=== PATIENT | male | born 1975 | race Caucasian/White ===

== ENCOUNTER 2022-01-17 05:28 | Day surgery (SDC) | payer BC ==
[2022-01-17] MEDS ORDERED: Lactated Ringers 1,000 ML IV SCH (06:30)
[2022-01-17] MEDS ORDERED: DIPRIVAN 200 MG/20 ML IV ONE (07:25)
[2022-01-17] MEDS ORDERED: Xylocaine-Mpf 2% 5 Ml Vial ONE (07:25)
[2022-01-17 08:01] VITALS: PULSE 59
[2022-01-17 08:07] VITALS: BP 146/83; O2SAT 99
--- NOTE | 2022-01-17 10:52 | OP ---
SURGERY DATE/TIME: 01/17/2022 0727 PREOPERATIVE DIAGNOSIS: Gastroesophageal reflux disease. POSTOPERATIVE DIAGNOSIS: Mild gastritis. PROCEDURE: Esophagogastroduodenoscopy with cold forceps biopsy. SURGEON: Dr. Munguia. ANESTHESIA: Medications were given by the anesthesia department. BRIEF HISTORY: The patient is a 46-year-old white male patient reports he had problems with reflux and epigastric pain for years. He currently takes Mylanta and omeprazole 40 mg a day. He said it improved it somewhat but he continues to have to take the Maalox. The patient is felt the need to have endoscopic evaluation. He was appraised of the risks of the procedure including the risk of perforation, phlebitis, untoward reaction to medication, bleeding and missed lesions. The patient verbalized his understanding and desired to have the procedure performed. DESCRIPTION OF PROCEDURE: The patient was given the medications by the anesthesia department. He had continuous pulse oximetry, ECG monitoring, intermittent blood pressure monitoring during the examination. He was placed in the left lateral decubitus position. A bite block was placed. The flexible Olympus gastroscope was used to intubate the oropharynx. A view of the larynx was obtained and was normal. The scope was easily introduced in the esophagus which was normal throughout its length. The stomach was entered where normal gastric rugal folds were seen and these distended nicely with insufflation of air. The scope was passed along the greater curvature of the stomach to the antrum. The pylorus was encountered and intubated. The duodenum inspected and found to be normal. The scope is withdrawn towards the stomach again. A retroflex view was obtained of the lesser curvature, fundus and cardia regions of the stomach and these were essentially normal. The scope was then redirected towards the gastric antrum and biopsies were obtained to rule out the presence of Helicobacter pylori-type organisms. The scope was then removed from the patient who tolerated the procedure well and was sent back to outpatient recovery in good condition.
== END 2022-01-17 08:13 | disposition home or self-care (01) ==
LOC: SDC 05:28
PROVIDERS: ATTEND Family Medicine
DX: K29.70 Gastritis, unspecified, without bleeding (principal); K21.9 Gastro-esophageal reflux disease without esophagitis
CPT/HCPCS: J2704

== ENCOUNTER 2022-07-19 20:52 | Emergency (ER) | payer BC ==
--- NOTE | 2022-07-19 21:20 | ERPHSYRPT ---
- History of Present Illness Source: patient Exam Limitations: no limitations Patient Subjective Stated Complaint: pt states "I stepped off the curb wrong and twisted my ankle." Triage Nursing Assessment: Pt presents to ED in wheelchair, pt alert and oriented x3, pt c/o L ankle pain after stepping off the curb wrong, L ankle noticably swollen, no bruising noted at this time, pt was recently put on xarelto for a blood clot in left leg that he has been taking for a couple weeks Physician History: 47 yo wm w L ankle pain after rolling it stepping off a curb in [place]. pain is mild, but worse w weight bearing. He denies other/previous injuries at this time. Method of Injury: twisted Occurred: just prior to arrival Quality: constant Severity of Pain-Max: moderate Severity of Pain-Current: mild Lower Extremities Pain: ankle: right Modifying Factors: Improves With: movement Associated Symptoms: unable to bear weight Allergies/Adverse Reactions: watermelon Allergy (Verified 07/19/22 21:03) Home Medications: Cetirizine HCl [All Day Allergy Relief] 10 mg PO DAILY 01/16/22 [History] Famciclovir 1 tab PO DAILY 01/16/22 [History] Finasteride 1 tab PO DAILY 01/16/22 [History] Furosemide 40 mg [Lasix 40 MG] 1 tab PO DAILY 01/16/22 [History] OXcarbazepine [Oxcarbazepine] 1 tab PO TID 01/16/22 [History] Omeprazole 1 cap PO DAILY 01/16/22 [History] Valacyclovir HCl [Valacyclovir] 1 tab PO TID 01/16/22 [History] Hx Tetanus, Diphtheria Vaccination/Date Given: No Hx Influenza Vaccination/Date Given: No Hx Pneumococcal Vaccination/Date Given: No Immunizations Up to Date: Yes Travel Risk - International Travel Have you traveled outside of the country in past 3 weeks: No - Coronavirus Screening Are you exhibiting any of the following symptoms?: No Close contact with a COVID-19 positive Pt in past 14-21 Days: No - Vaccine Status Have you recieved a Covid-19 vaccination: Yes Senior [employer]: [employer] - Vaccination Dates Date of 2cond Vaccination (if applicable): 2020 - Review of Systems Constitutional: No Symptoms Eyes: No Symptoms Ears, Nose, & Throat: No Symptoms Respiratory: No Symptoms Cardiac: No Symptoms Abdominal/Gastrointestinal: No Symptoms Genitourinary Symptoms: No Symptoms Skin: No Symptoms Neurological: No Symptoms Psychological: No Symptoms Endocrine: No Symptoms Hematologic/Lymphatic: No Symptoms Immunological/Allergic: No Symptoms - Past Medical History Pertinent Past Medical History: Yes Neurological History: No Pertinent History ENT History: No Pertinent History Cardiac History: No Pertinent History Respiratory History: No Pertinent History Endocrine Medical History: No Pertinent History Musculoskeletal History: Other GI Medical History: GERD History: No Pertinent History Psycho-Social History: No Pertinent History Male Reproductive Disorders: No Pertinent History Other Medical History: neuropathy in both legs - Past Surgical History Past Surgical History: Yes Neuro Surgical History: No Pertinent History Cardiac: No Pertinent History Respiratory: No Pertinent History Gastrointestinal: No Pertinent History Genitourinary: No Pertinent History Musculoskeletal: Orthopedic Surgery Male Surgical History: No Pertinent History Other Surgical History: right hand surgery. - Social History Smoking Status: Never smoker Exposure to second hand smoke: No Drug Use: none Patient Lives Alone: No - Nursing Vital Signs Nursing Vital Signs: Initial Vital Signs Temperature 98.6 F 07/19/22 21:04 Pulse Rate 92 H 07/19/22 21:04 Respiratory Rate 18 07/19/22 21:04 Blood Pressure 126/79 07/19/22 21:04 O2 Sat by Pulse Oximetry 98 07/19/22 21:04 Pain Scale Pain Intensity 8 WNL - Physical Exam General Appearance: no apparent distress Eyes, Ears, Nose, Throat Exam: normal ENT inspection, TMs normal, pharynx normal, moist mucous membranes Neck Exam: normal inspection, non-tender, supple, full range of motion, other (C-spine NTTP), No Brudzinski, No Kernig's, No meningismus Cardiovascular/Respiratory Exam: chest non-tender, normal breath sounds, regular rate/rhythm, heart sounds normal, no respiratory distress Gastrointestinal/Abdominal Exam: non-tender, soft Back Exam: normal inspection, No vertebral tenderness Hips Exam: bilateral: non-tender, normal inspection, normal range of motion, no evidence of injury Legs Exam: bilateral leg: non-tender, normal inspection, normal range of motion, no evidence of injury Knees Exam: bilateral knee: non-tender, normal inspection, normal range of motion, no evidence of injury Ankle Exam: left ankle: swelling (Marked edema surrounding medial-lateral malleolus/Mild TTP medially and laterally/Good pedal pulse, distal sensation, and capillary return) Foot Exam: bilateral foot: non-tender, normal inspection, normal range of motion, no evidence of injury DTR - Lower Extremities Exam: knee (R): 2+, knee (L): 2+ Neuro/Tendon Exam: normal sensation, normal motor functions, normal tendon functions, responds to pain, no evidence tendon injury, No motor deficit, No sensory deficit Mental Status Exam: alert, oriented x 3, cooperative Skin Exam: normal color, warm, dry, No rash SpO2 Interpretation: normal SpO2: 98 O2 Delivery: Room Air - Course Nursing assessment & vital signs reviewed: Yes - Radiology Exams Ankle X-ray Interpretation: Discussed w/ radiologist (Avulsion fx lateral talus) Ordered Tests: Active Orders 24 hr Category Date Time Status Crutches STAT Care 07/19/22 22:13 Ordered Splint STAT Care 07/19/22 22:12 Ordered ANKLE (3 VIEWS) Stat Exams 07/19/22 21:23 Taken Medication Summary Discontinued Medications Generic Name Dose Route Start Last Admin Trade Name Kurtq PRN Reason Stop Dose Admin Ketorolac Tromethamine 30 mg 07/19/22 21:21 07/19/22 21:23 Ketorolac Tromethamine 30 Mg/Ml Inj IM 07/19/22 21:22 30 mg STAT ONE Administration Ketorolac Tromethamine Confirm 07/19/22 21:22 Ketorolac Tromethamine 30 Mg/Ml Inj Administered 07/19/22 21:23 Dose 30 mg .ROUTE .STK-MED ONE Ketorolac Tromethamine 30 mg 07/19/22 22:12 Ketorolac Tromethamine 30 Mg/Ml Inj IM 07/19/22 22:13 STAT ONE - Progress Progress: improved Progress Note: 07/19/22 22:15 30mg IM Toradol Walking Boot LLE per nursing/NVI Crutches per nursing Counseled pt/family regarding: diagnosis, need for follow-up, rad results - Departure Departure Disposition: Home Clinical Impression: Fracture, talus closed Condition: Stable Critical Care Time: No Referrals: LESLIE ALY [Primary Care Provider] - Follow up/PCP as directed ORTHO - FATMATA FOUNTAIN NP [NON-STAFF PHY W/O PRIVILEGES] - Follow up/PCP as directed Instructions: Ankle Fracture (DC) Additional Instructions: Ice for 12-24 hours No weight bearing/Use crutches Follow up in Ortho clinic M-Fr 8-10 Pain meds as needed Prescriptions: Hydrocodone/Acetaminophen [Hydrocodone-Acetamin 5-325 mg] 1 tab PO Q4HPRN PRN #6 tablet MDD 6 PRN Reason: Pain
[2022-07-19] MEDS ORDERED: TORAdol 30 mg Injection ONE ×2 (21:22→22:26)
[2022-07-19] MEDS: TORAdol 30 mg Injection IM ONE ×2 (21:23→22:28)
[2022-07-19] MEDS ORDERED: NORCO 5/325 MG ONE (22:27)
[2022-07-19] MEDS: NORCO 5/325 MG PO ONE (22:28)
[2022-07-19 22:42] VITALS: BP 132/78; PULSE 78; O2SAT 99
--- NOTE | 2022-07-20 08:52 | XRAY ---
Indication: Pain following inversion injury. Comparison: None 3 view left ankle demonstrates displaced cortical fracture lateral margin talus with anterior lateral soft tissue swelling. No other bony, articular, or soft tissue abnormalities.
== END 2022-07-19 22:42 | disposition home or self-care (01) ==
LOC: ED 20:52
DX: S92.102A Unspecified fracture of left talus, initial encounter for closed fracture (principal); M25.472 Effusion, left ankle; X50.1XXA Overexertion from prolonged static or awkward postures, initial encounter; Z79.01 Long term (current) use of anticoagulants; Z79.899 Other long term (current) drug therapy
CPT/HCPCS: 73610; 96372; 99283; J1885; L4386; A9270-GY

== ENCOUNTER 2024-09-08 12:39 | Emergency (ER) | payer BC ==
[2024-09-08 13:01] VITALS: TEMP 98
--- NOTE | 2024-09-08 13:28 | ERPHSYRPT ---
- History of Present Illness Time Seen by Provider: 09/08/24 12:47 Source: patient Exam Limitations: no limitations Patient Subjective Stated Complaint: C/O abdominal pain with N/V that started at 2am today. Triage Nursing Assessment: Patient ambulated back to ER without difficulties. He is alert and oriented. Patient gaurding/holding right side of abdomen upon arrival. No SOB. SKin tone normal. LY WNL. Physician History: Pt is a 49 y/o male presenting with right-upper abd. pain since 2 am this morning. Pt endorses sudden onset of 10/10 dull pain that was worse while laying on his right side. He describe having multiple episodes of vomiting without blood and has been unable to eat anything since last night and also has difficulty keeping fluids down. He descrbies never having experienced such a pain before and is not similar to the usual heartburn he has had. He has not taken any medications for the pain as he can't keep anything down and claims to not use painkillers such as ibuprofen normally. He does feel feverish feverish but has not had his temparture taken at home. He notes no previous surgeries on his abdomen. He describe that his stool was also abnormally soft and light green this morning but no blood. Allergies/Adverse Reactions: watermelon Allergy (Verified 09/08/24 12:52) Home Medications: Famciclovir 1 tab PO DAILY 01/16/22 [History] Finasteride 1 tab PO DAILY 01/16/22 [History] Gabapentin [Neurontin ] 300 mg PO DAILY 09/08/24 [History] PANTOPRAZOLE 40 mg Tablet [Protonix 40MG Tablet] 40 mg PO DAILY 09/08/24 [History] Hx Tetanus, Diphtheria Vaccination/Date Given: Yes Hx Influenza Vaccination/Date Given: No Hx Pneumococcal Vaccination/Date Given: No Immunizations Up to Date: Yes Travel Risk - International Travel Have you traveled outside of the country in past 3 weeks: No - Emerging Infectious Disease Are you exhibiting symptoms associated with any current EIDs: Yes Symptoms: Abdominal Pain, Vomitting - Past Medical History Pertinent Past Medical History: Yes Neurological History: No Pertinent History ENT History: No Pertinent History Cardiac History: Deep Vein Thrombosis Respiratory History: No Pertinent History Endocrine Medical History: No Pertinent History Musculoskeletal History: Other GI Medical History: GERD History: No Pertinent History Psycho-Social History: No Pertinent History Male Reproductive Disorders: No Pertinent History Other Medical History: neuropathy in both legs - Past Surgical History Past Surgical History: Yes Neuro Surgical History: No Pertinent History Cardiac: No Pertinent History Respiratory: No Pertinent History Gastrointestinal: No Pertinent History Genitourinary: No Pertinent History Musculoskeletal: Orthopedic Surgery Male Surgical History: No Pertinent History Other Surgical History: right hand surgery. - Social History Smoking Status: Never smoker Exposure to second hand smoke: No Drug Use: none Patient Lives Alone: No - Social Determinants of Health Will the patient participate in the screening: Declined to provide - Nursing Vital Signs Nursing Vital Signs: Initial Vital Signs Pulse Rate 77 09/08/24 12:50 Respiratory Rate 15 09/08/24 12:50 Blood Pressure 127/86 09/08/24 12:50 O2 Sat by Pulse Oximetry 98 09/08/24 12:50 Pain Scale Pain Intensity 4 - Physical Exam SpO2 Interpretation: normal SpO2: 98 Comments: 09/08/24 14:01 Review of Systems Constitutional: Negative for fever. HENT: Negative for congestion. Respiratory: Negative for shortness of breath. Cardiovascular: Negative for chest pain. Gastrointestinal: Abdominal pain Genitourinary: Negative for dysuria. Musculoskeletal: Negative for back pain. Skin: Negative for rash. Neurological: Negative for headaches. Psychiatric/Behavioral: Negative for behavioral problems. All other systems reviewed and are negative. Physical Exam Vitals signs and nursing note reviewed. Constitutional: Appearance: Patient is well-developed. HENT: Head: Normocephalic and atraumatic. Eyes: Conjunctiva/sclera: Conjunctivae normal. Neck: Musculoskeletal: Normal range of motion. Trachea: No tracheal deviation. Cardiovascular: Rate and Rhythm: Normal rate. Pulmonary: Effort: Pulmonary effort is normal. No respiratory distress. Abdominal: Palpations: Abdomen is soft. Right upper quadrant tenderness. No rebound or guarding. Nonacute abdomen Musculoskeletal: General: No deformity. Skin: General: Skin is warm and dry. Neurological/ Psychiatric: Mental Status: Mental status, behavior, interaction with environment is appropriate for patient's age and condition - Course Nursing assessment & vital signs reviewed: Yes EKG Interpreted by Me: Sinus Rhythm Ordered Tests: Active Orders 24 hr Category Date Time Status EKG-ER Only STAT Care 09/08/24 13:16 Active IV Insertion STAT Care 09/08/24 13:16 Active ABDOMEN AND PELVIS W CONTRAST [CT] Stat Exams 09/08/24 13:16 Completed CBC W DIFF Stat Lab 09/08/24 13:45 Completed CMP Stat Lab 09/08/24 13:45 Completed LIPASE Stat Lab 09/08/24 13:45 Completed UA W/RFX UR CULTURE Stat Lab 09/08/24 13:16 Ordered Medication Summary Discontinued Medications Generic Name Dose Route Start Last Admin Trade Name Murali PRN Reason Stop Dose Admin Sodium Chloride 1,000 mls @ 999 mls/hr 09/08/24 13:16 09/08/24 14:45 Sodium Chloride 0.9% 1000 Ml IV 09/08/24 14:16 Infused .Q1H1M STA Infusion Sodium Chloride Confirm 09/08/24 13:37 Sodium Chloride 0.9% 1000 Ml Administered 09/08/24 13:38 Dose 1,000 mls @ ud .ROUTE .STK-MED ONE Ketorolac Tromethamine 30 mg 09/08/24 13:16 09/08/24 13:44 Ketorolac Tromethamine 30 Mg/Ml Inj IV 09/08/24 13:17 30 mg STAT ONE Administration Ketorolac Tromethamine Confirm 09/08/24 13:37 Ketorolac Tromethamine 30 Mg/Ml Inj Administered 09/08/24 13:38 Dose 30 mg .ROUTE .STK-MED ONE Morphine Sulfate 2 mg 09/08/24 13:16 09/08/24 13:45 Morphine Sulfate 2 Mg/Ml Inj IV 09/08/24 13:17 2 mg STAT ONE Administration Morphine Sulfate Confirm 09/08/24 13:37 Morphine Sulfate 2 Mg/Ml Inj Administered 09/08/24 13:38 Dose 2 mg .ROUTE .STK-MED ONE Ondansetron HCl 4 mg 09/08/24 13:16 09/08/24 13:43 Ondansetron Hcl 4 Mg/2 Ml Vial IV 09/08/24 13:17 4 mg STAT ONE Administration Ondansetron HCl Confirm 09/08/24 13:37 Ondansetron Hcl 4 Mg/2 Ml Vial Administered 09/08/24 13:38 Dose 4 mg .ROUTE .STK-MED ONE Lab/Rad Data: Laboratory Result Diagrams 09/08/24 13:45 09/08/24 13:45 Laboratory Results 12/09/24 12/09/24 Range/Units 13:45 13:45 WBC 8.2 (4.23-9.07) x10^3/uL RBC 5.05 (4.63-6.08) x10^6/uL Hgb 12.6 L (13.7-17.5) g/dL Hct 39.6 L (40.1-51.0) % MCV 78.4 L (79.0-92.2) fL MCH 25.0 L (25.7-32.2) pg MCHC 31.8 L (32.3-36.5) g/dL RDW 15.3 H (11.6-14.4) % Plt Count 274 (163-337) x10^3/uL MPV 9.7 (9.4-12.4) fL Gran % 88.4 H (34.0-67.9) % Immature Gran % (Auto) 0.2 (0.001-0.429) % Nucleat RBC Rel Count 0.0 (0.00-0.2) % Eos # (Auto) 0.04 (0.04-0.54) x10^3/uL Immature Gran # (Auto) 0.02 (0.001-0.031) x10^3u/L Absolute Lymphs (auto) 0.52 L (1.32-3.57) x10^3/uL Absolute Monos (auto) 0.35 (0.30-0.82) x10^3/uL Absolute Nucleated RBC 0.00 (0.00-0.012) x10^3u/L Lymphocytes % 6.4 L (21.8-53.1) % Monocytes % 4.3 L (5.3-12.2) % Eosinophils % 0.5 L (0.8-7.0) % Basophils % 0.2 (0.2-1.2) % Absolute Granulocytes 7.23 H (1.78-5.38) x10^3/uL Basophils # 0.02 (0.01-0.08) x10^3/uL Sodium 138 (135-145) mmol/L Potassium 3.7 (3.5-5.1) mmol/L Chloride 107 (98-107) mmol/L Carbon Dioxide 21 L (22-30) mmol/L Anion Gap 13.2 (5-15) MEQ/L BUN 19 (9-20) mg/dL Creatinine 1.10 (0.66-1.25) mg/dL Estimated GFR 82.8 ML/MIN Glucose 102 (74-106) mg/dL Calcium 9.2 (8.4-10.2) mg/dL Total Bilirubin 0.70 (0.2-1.3) mg/dL AST 27 (17-59) U/L ALT 22 (0-50) U/L Alkaline Phosphatase 44 (38-126) U/L Serum Total Protein 6.9 (6.3-8.2) g/dL Albumin 4.0 (3.5-5.0) g/dL Lipase 38 (23-300) U/L Slides for Path Review YES - Progress Progress Note: 09/08/24 14:02 Differential diagnosis includes kidney stone, compression fracture, infection, UTI, triple AAA - basic labs including: CBC, lipase, CMP - insert IV for symptom management - consider imaging: CT ab/pelvis or U/S We also obtain an EKG to make sure that there was no inferior SD causing the abd ominal pain. Reevaluation Patient feels improved with medication. Labs demonstrate no leukocytosis, other signs of severe infection. No elevation of LFTs. EKG demonstrates sinus rhythm, rate 65, WA interval 191, QRS 94, QTc 410. CT scan as above demonstrates acute enteritis. No signs of other severe abnormality. I went over all incidental findings with the patient as well. Impression: Mild enteritis. Incidental tiny hepatic hemangioma. Remaining CT abdomen/pelvis with contrast exam is negative. Patient will need close follow-up with PCP. Abdominal reexam in 24 to 48 hours. Patient may return here sooner for any new or changing symptoms. Patient already has a endoscopic scheduled for next week. This will most likely be beneficial for his long-term symptoms. Counseled pt/family regarding: lab results, diagnosis, need for follow-up, rad results - Departure Departure Disposition: Home Clinical Impression: Enteritis Condition: Stable Critical Care Time: No Referrals: SELMA LEROY NP [Primary Care Provider] - Follow up/PCP as directed Instructions: Abdominal pain Additional Instructions: See primary care physician for abdominal reexam in 24 hours. Follow-up with PCP for scheduled endoscopy next week. Return here sooner for new or changing symptoms. Prescriptions: Dicyclomine HCl 20 mg [Bentyl 20 mg] 20 mg PO BID PRN 15 Days #40 tablet
[2024-09-08] MEDS ORDERED: Zofran 4 MG/2 ML VIAL ONE (13:37)
[2024-09-08] MEDS ORDERED: Sodium Chloride 0.9% 1000 ML 1,000 ML ONE (13:37)
[2024-09-08] MEDS ORDERED: MORPHINE SULFATE 2 MG INJ ONE (13:37)
[2024-09-08] MEDS ORDERED: TORAdol 30 mg Injection ONE (13:37)
[2024-09-08] MEDS: Sodium Chloride 0.9% 1000 ML 1,000 ML IV STA (13:42)
[2024-09-08] MEDS: Zofran 4 MG/2 ML VIAL IV ONE (13:43)
[2024-09-08] MEDS: TORAdol 30 mg Injection IV ONE (13:44)
[2024-09-08] MEDS: MORPHINE SULFATE 2 MG INJ IV ONE (13:45)
[2024-09-08 13:46] LABS: Absolute Neutrophil Ct (ANC) 7.23 x10^3/uL (1.78-5.38); BASOPHIL % 0.2 % (0.2-1.2); Basophil (Absolute #) 0.02 x10^3/uL (0.01-0.08); Eosinophil % 0.5 % (0.8-7.0); Eosinophil (Absolute #) 0.04 x10^3/uL (0.04-0.54); Hematocrit 39.6 % (40.1-51.0); Hemoglobin 12.6 g/dL (13.7-17.5); IMMATURE GRAN # 0.02 x10^3u/L (0.001-0.031); IMMATURE GRAN % 0.2 % (0.001-0.429); Lymphocyte (Absolute #) 0.52 x10^3/uL (1.32-3.57); Lymphocytes % 6.4 % (21.8-53.1); Mean Cell Volume 78.4 fL (79.0-92.2); Mean Corpuscular Hgb Concent. 31.8 g/dL (32.3-36.5); Mean Platelet Volume 9.7 fL (9.4-12.4); Monocyte (Absolute #) 0.35 x10^3/uL (0.30-0.82); Monocytes % 4.3 % (5.3-12.2); Neutrophil % 88.4 % (34.0-67.9); Platelet Count 274 x10^3/uL (163-337); Red Blood Count 5.05 x10^6/uL (4.63-6.08); Red Cell Distribution Width 15.3 % (11.6-14.4); White Blood Count 8.2 x10^3/uL (4.23-9.07)
[2024-09-08 14:02] LABS: ANION GAP 13.2 MEQ/L (5-15); BILIRUBIN,TOTAL 0.7 mg/dL (0.2-1.3); Calcium 9.2 mg/dL (8.4-10.2); Creatinine 1 1.1 mg/dL (0.66-1.25); EST GLOMERULAR FILTRATION RATE 82.8 ML/MIN; Potassium 3.7 mmol/L (3.5-5.1); Total Protein 6.9 g/dL (6.3-8.2)
[2024-09-08 14:19] LABS: Slide Review 1 YES
--- NOTE | 2024-09-08 15:02 | XRAY ---
Indication: Right upper quadrant pain. Multiple contiguous axial images obtained through abdomen and pelvis using 80 cc Isovue 370 contrast. Comparison: None Lung bases demonstrate mild left lung base subsegmental atelectasis/scarring and tiny calcified granuloma. Heart not enlarged. Noncontrasted stomach and bowel loops appear nonobstructed. Several midabdomen small bowel loops are mildly fluid distended up to 3.8 cm with fluid leveling and circumferential wall thickening favoring enteritis. Normal appendix.. Inferior right lobe liver demonstrates 5 mm hemangioma. No free fluid/air. Remaining liver, gallbladder, pancreas, spleen, adrenal glands, kidneys, ureters, bladder, and aorta are unremarkable. No pathologic retroperitoneal lymphadenopathy. Osseous structures intact. Impression: Mild enteritis. Incidental tiny hepatic hemangioma. Remaining CT abdomen/pelvis with contrast exam is negative.
[2024-09-08 15:27] VITALS: O2SAT 98
[2024-09-08 15:58] VITALS: BP 122/75; PULSE 55; RESP 17
== END 2024-09-08 15:59 | disposition home or self-care (01) ==
LOC: ED 12:39
DX: K52.9 Noninfective gastroenteritis and colitis, unspecified (principal); R10.11 Right upper quadrant pain; R11.2 Nausea with vomiting, unspecified
CPT/HCPCS: 36415; 74177; 80053; 83690; 85025; 93005; 96360; 96374; 96375; 99284; 99285; J1885; J2270; J2405

== ENCOUNTER 2024-09-19 06:20 | Day surgery (SDC) | payer BC ==
[2024-09-19 07:14] VITALS: RESP 18
[2024-09-19 07:20] LABS: Calcium 9.3 mg/dL (8.4-10.2); Creatinine 1 1.19 mg/dL (0.66-1.25); EST GLOMERULAR FILTRATION RATE 75.4 ML/MIN
[2024-09-19 07:23] LABS: Potassium 3.9 mmol/L (3.5-5.1)
[2024-09-19 07:26] LABS: ANION GAP 10.9 MEQ/L (5-15)
[2024-09-19] MEDS ORDERED: DIPRIVAN 200 MG/20 ML IV ONE (07:55)
[2024-09-19 08:40] VITALS: PULSE 50
[2024-09-19 08:51] VITALS: BP 121/78; TEMP 97.8; O2SAT 97
--- NOTE | 2024-09-22 10:37 | OP ---
SURGERY DATE/TIME: 09/19/2024 4303-0758 PREOPERATIVE DIAGNOSIS: Epigastric pain. POSTOPERATIVE DIAGNOSIS: Mild gastritis. PROCEDURE: Esophagogastroduodenoscopy with cold forceps biopsy. SURGEON: Lucas Munguia MD ANESTHESIA: Medications were given by the anesthesia department. INDICATIONS: The patient is a 49-year-old white male patient who has been having approximately 3 weeks of epigastric pain. He presented to the emergency room and was diagnosed with enteritis, and apparently at some point, he had been given 3 doses of antibiotics for a reason which I am unclear at the present. The patient was felt the need to have endoscopic evaluation. He was appraised of the risks of the procedure including risk of perforation, phlebitis, untoward reaction to medication, bleeding, and missed lesions. The patient verbalized his understanding and desire to have procedure performed. DESCRIPTION OF PROCEDURE AND FINDINGS: The patient was given medication by the anesthesia department. He had continuous pulse oximetry, ECG monitoring, and intermittent blood pressure monitoring during the examination. He was placed in the left lateral decubitus position. A bite block was placed, and a flexible Olympus gastroscope was used to intubate the oropharynx. A view of the larynx was obtained and was normal. Scope was easily introduced in the esophagus, which appeared to be normal throughout its length. The stomach was entered where normal gastric rugal folds were seen, and each distended nicely with insufflation of air. The scope was passed along the greater curvature of the stomach to the antrum. The pylorus was encountered and intubated. The duodenum was inspected and found to be normal. Scope was withdrawn towards the stomach. Retroflexed view was obtained of the lesser curvature, fundus, and cardia regions of the stomach, and these appeared to be essentially normal. The scope was then redirected towards the gastric antrum where biopsies were obtained to rule out the presence of Helicobacter pylori-type organisms. The scope was then removed. The patient tolerated the procedure well and sent back to outpatient recovery in good condition. The patient's was instructed to make sure he does not drink any alcohol over the next few weeks, as the patient had reported that this did exacerbate his symptoms.
== END 2024-09-19 08:57 | disposition home or self-care (01) ==
LOC: SDC 06:20
PROVIDERS: ATTEND Family Medicine
DX: K29.70 Gastritis, unspecified, without bleeding (principal); R10.13 Epigastric pain
CPT/HCPCS: 36415; 80048; 93005; J2704

== ENCOUNTER 2024-12-25 10:40 | Day surgery (SDC) | payer BC ==
[~2024-12-25 10:40] MED LIST: Lactated Ringers 1,000 ML IV ONE; Sensorcaine 0.25% 10 ML ONE; Sodium Chloride 0.9% 1000 ML 1,000 ML ONE
[2024-12-25] MEDS: CEFOXITIN 2 GM/100 ML NACL IVPB 2 GM/100 ML IVPB IV ONE (11:08)
[2024-12-25] MEDS: Lactated Ringers 1,000 ML IV SCH (11:08)
[2024-12-25 12:09] LABS: ANION GAP 14.4 MEQ/L (5-15); Calcium 9.1 mg/dL (8.4-10.2); Creatinine 1 0.95 mg/dL (0.66-1.25); EST GLOMERULAR FILTRATION RATE 98.7 ML/MIN; Potassium 4.2 mmol/L (3.5-5.1)
[2024-12-25] MEDS ORDERED: propofoL IV ONE (13:16)
[2024-12-25] MEDS ORDERED: SUBLIMAZE 100 MCG/2 ML ONE ×2 (13:17→14:48)
[2024-12-25] MEDS ORDERED: Xylocaine-Mpf 2% 5 Ml Vial ONE (13:19)
[2024-12-25] MEDS ORDERED: Quelicin Fliptop 200 MG/10 ML ONE (13:19)
[2024-12-25] MEDS ORDERED: ROCURONIUM BROMIDE IV ONE (13:19)
[2024-12-25] MEDS ORDERED: Zofran 4 MG/2 ML VIAL ONE ×2 (13:19→14:56)
[2024-12-25] MEDS ORDERED: BRIDION 200MG/2ML IV ONE (13:21)
[2024-12-25] MEDS ORDERED: TORAdol 30 mg Injection ONE (13:21)
[2024-12-25] MEDS ORDERED: dexAMETHasone sodium phosphate ONE (13:22)
[2024-12-25] MEDS ORDERED: DEXMEDETOMIDINE 80 MCG/20ML-NS IV ONE (14:07)
[2024-12-25 15:30] VITALS: TEMP 96.5
[2024-12-25] MEDS ORDERED: NORCO 5/325 MG ONE (15:47)
[2024-12-25 15:49] VITALS: PULSE 51; RESP 18; O2SAT 100
[2024-12-25] MEDS: NORCO 5/325 MG PO ONE (15:49)
[2024-12-25 15:57] VITALS: BP 136/73
--- NOTE | 2024-12-26 12:42 | OP ---
SURGERY DATE: 12/25/2024 [id number] PREOPERATIVE DIAGNOSIS: Chronic cholecystitis, gallbladder polyps on ultrasound. POSTOPERATIVE DIAGNOSIS: Chronic cholecystitis, gallbladder polyps on ultrasound. PROCEDURE PERFORMED: Laparoscopic cholecystectomy. SURGEON: Blayne Simental MD ANESTHESIA: General. ESTIMATED BLOOD LOSS: Minimal. PATIENT CONDITION: Stable. COMPLICATIONS: None. SPECIMENS: Gallbladder. INDICATIONS: Patient presents with right upper quadrant postprandial abdominal pain consistent with chronic cholecystitis. He did undergo imaging and was found to have what looked to be small gallbladder polyps. I discussed with the patient whether this is symptomatic polyps or small stones that just did not shadow. He does seem to have typical symptoms. Options would be observation with repeat ultrasound versus a HIDA scan versus surgery and risk of infection, bleeding, injury to nearby structure, hernia, failure to resolve symptoms discussed. He elected to proceed with surgery. FINDINGS: Omental adhesions to the gallbladder. Critical view obtained. DESCRIPTION OF PROCEDURE AND FINDINGS: The patient was brought to the operating room. General anesthesia induced. Routinely positioned, prepped, and draped. Time-out performed. Received preoperative antibiotic. Veress needle inserted left upper quadrant. Pneumoperitoneum was established. A 5 mm Optiview trocar placed in the left upper quadrant. The abdomen was surveyed. An 11 mm right paramedial trocar placed. Two additional 5 mm trocars placed in right upper quadrant. The patient was positioned. Gallbladder attempted to be retracted. Actually, the omentum is just plastered up to the gallbladder so the omental adhesions are carefully taken down, then the gallbladder was retracted. Cystic duct and cystic artery dissected out. Critical view was clearly obtained. The 5 mm metal clip manager emergency 3 down for the duct and artery are used and then, both are divided. Gallbladder was taken off the liver bed. It was placed inside a specimen bag, removed through the 11 trocar site. Right upper quadrant was re-inspected. There is good hemostasis. Clips are in good position. The 11 trocar site closed with 0 Vicryl interrupted suture passer. Right upper quadrant trocars are removed under direct visualization. The left upper quadrant trocar used for desufflation, then removed. Marcaine injected at all the incision sites. Skin was closed with 4-0 Vicryl suture. Steri-Strips and sterile dressings applied. All counts were correct. The patient tolerated the procedure well, was extubated, taken to recovery in stable condition.
== END 2024-12-25 16:20 | disposition home or self-care (01) ==
LOC: SDC 10:40
PROVIDERS: ATTEND Surgery
DX: K81.1 Chronic cholecystitis (principal); Z79.899 Other long term (current) drug therapy
CPT/HCPCS: 36415; 80048; 93005; J0330; J0694; J1100; J1885; J2405; J2704; J3010; A9270-GY